=== PATIENT | male | born 1950 | race Caucasian/White ===

== ENCOUNTER 2022-07-02 14:44 | Emergency (ER) | payer MEDICARE, OTHER, SELFPAY ==
[2022-07-02 14:45] VITALS: BP 153/78; PULSE 70; RESP 14; TEMP 36.4; O2SAT 95; BMI 30.7
--- NOTE | 2022-07-02 14:56 | EX.ED.UPPERE ---
HPI History of Present Illness HPI Narrative: Left index finger laceration on a grinding wheel. Chief Complaint: Laceration Informant: patient Occured/Mechanism Mechanism/Context: Yes injury and Yes blunt trauma Onset/Context/Timing Onset: Today Context: Sudden Onset Timing: Continuous Quality of Pain: Dull Current Severity: Mild Maximum Severity: Mild Associated Symptoms Associated Symptoms: Negative for Parasthesia, Weakness or Loss of Funtion Narrative Narrative: 72-year-old male last tetanus shot was greater than 10 years ago. Was using a grinding wheel today and lacerated the dorsum of his left index finger. He is right-hand dominant. He is not on any blood thinners. Tetanus Immunization: >10 years Prior similar symptoms: No Recent Illness/Hospitalization: No PFSH PFSH Medical History (Updated 07/02/22 @ 15:11 by Jacinda Mirza) Hypercholesteremia Kidney stones Home Medications sertraline 50 mg tablet 50 mg PO DAILY 04/03/13 [History Last Taken Unknown] cephalexin 500 mg capsule 500 mg PO TID 5 days #15 caps 07/02/22 [Rx Last Taken Unknown] Allergy/AdvReac Type Severity Reaction Status Date / Time Iodinated Contrast Media Allergy Rash Verified 07/02/22 14:47 [Iodinated Contrast Media - IV Dye] Social History Smoking Status: Never smoker ROS ROS ED ROS Narrative Denies recent illness Review of Systems ROS Unobtainable: Denies due to encephalopathy Constitutional Constitutional ED: Denies chills or fever(s) Eyes Eyes: Denies blurry vision ENT ENT ED: Denies ear pain Cardiovascular Cardiovascular: Denies chest pain Respiratory/Chest Respiratory/Chest: Denies cough Gastrointestinal Gastrointestinal: Denies abdominal pain Genitourinary Genitourinary ED: Denies dysuria Musculoskeletal Musculoskeletal: Denies back pain Integumentary Denies abscess Neurologic Neurologic: Denies headache(s) Psychiatric Psychiatric: Denies anxiety Endocrine Endocrinology: Denies cold intolerance Hematologic/Lymphatic Hematologic/Lymphatic: Denies easy bleeding Allergic/Immunologic Allergic/Immunologic ED: Denies mouth swelling or tongue swelling EXAM Physical Exam Narrative Exam Narrative: Signs are met no acute distress. Vital signs stable afebrile. H EENT exam unremarkable. Lungs clear. Heart regular rhythm. Abdomen soft nontender. Moving all 4 extremities. Neurovascular intact. Normal range of motion. Specifically left hand, left index finger dorsum there is a 1-1/2 inch laceration is linear. He has full extension against resistance. Full flexion. Normal touch sensation. Normal cap refill. No foreign body. No obvious tendon involvement. Fingers neurovascular intact. Const Vital Signs: 07/02/22 14:45 Temperature 97.6 F L Temperature Source Temporal Pulse Rate 70 Respiratory Rate 14 Blood Pressure 153/78 H Blood Pressure Mean 103 Pulse Ox 95 Oxygen Delivery Method Room Air Positive well nourished and well developed; Negative for obese, cachectic, contractures or unkempt General Appearance ED: well developed and NAD; Negative for unkempt, cachectic, contractures, cyanotic or diaphoretic Nutritional Appearance: Negative for cachectic or obese HEENT Reports moist mucous membranes normocephalic and atraumatic; Negative for trauma or tenderness Eyes PERRL and EOMs intact bilaterally General Eye ED: Negative for other Neck full ROM and supple General: Negative for tenderness Lymph Lymphatic: Negative for other Chest Wall inspection of chest normal and palpation of chest normal Chest: Negative for other Resp normal respiratory effort and clear to auscultation bilaterally Effort and Inspection: Negative for pain with movement Auscultation: Negative for rales, rhonchi or wheezes Cardio regular rate, regular rhythm, S1 normal heart sound, S2 normal heart sound and no murmurs Rate: Negative for bradycardia or tachycardic Rhythm: Negative for abnormal rhythm GI non-tender, non-distended and no masses Inspection: Negative for abdominal distention Auscultation: normoactive bowel sounds Palpation: soft; Negative for tender or guarding Extremity normal to inspection Extremity Narrative: Exam left hand. Left index finger dorsum. 1 to 2 inch linear laceration. Full flexion extension. Full extension against resistance. Normal touch sensation. Normal cap refill. No infection. No foreign body noted. General Extremety ED: Negative for edema General Extremity: Negative for edema Neuro oriented x3, CN's II-XII intact bilaterally, moves all extremities and no focal motor deficits Sensorium / Orientation: alert, oriented to person, oriented to place and oriented to time; Negative for orientation impaired, lethargic or stuporous Motor Exam: strength 5/5 throughout Psych mental status grossly normal Appearance: Negative for unkempt Attitude: No agitated Mood & Affect: Negative for depressed, anxious or tearful Skin General Skin Exam: Negative for petechiae Lesions: no lesions Rashes: no rashes Trauma: no lacerations or abrasions; Negative for abrasion or laceration MDM MDM MDM Narrative Medical decision making narrative: Flex today finger laceration. Tetanus updated. Will be cleaned. Local anesthetized and repaired. Suture removal 10 days. Watch for any signs of infection. Return if any problems. History & Record Review Discussion w/independent historian: Patient Procedures Lacerations Dorsal left index finger laceration repair:: Length: 2 in Depth: Sub Q Shape: Linear Prep: [place]is Laceration repair: Irrigated, Lidocaine, Local and Skin sutures Number of Sutures/Uzma: 4 Suture Information: Ethilon, Simple and 4-0 Comment: Left index finger laceration. Dorsum over the PIP. Involve the skin and subcu tissue. Minimal bleeding. Full flexion extension. Normal touch sensation and cap refill. Wound involves the skin and subcu tissue. Does go deeper on the distal and might even involve the tendon sheath. I do not see any tendon involvement itself nor any joint or bone involvement. Irrigated thoroughly. Closed using 4 simple, interrupted sutures. Patient tolerated wound closure well. Proper hemostasis and wound closure was obtained. Patient was instructed on wound care and suture removal. He will be placed on Keflex for 5 days to try to prevent infection since it is deeper. Discharge Plan Triage Chief Complaint: Laceration ED Provider: Rafael Pierre Dx/Rx/DC Orders Clinical Impression: Finger laceration Instructions: ED Laceration, Hand: All Closures Prescriptions: New cephalexin 500 mg capsule 500 mg PO TID 5 Days Qty: 15 0RF No Action sertraline 50 MG tablet 50 mg PO DAILY Activity Restrictions/Additional Instructions: Clean with soap and water. Keep dry. Apply antibiotic ointment daily. Watch for any signs of infection such as redness, fever, and because swelling or streaks of seen return. Stitches out in 10 days. Antibiotic 1 pill 3 times a day for 5 days. Disposition Disposition: Home, Self Care
[2022-07-02] MEDS: Lidocaine 1% (20 ml mdv) 20 ML Vial 10 ML INFILT (15:02)
[2022-07-02] MEDS: Diphth,Pertuss(Acell),Tet Vac 0.5 ML Vial IM (15:03)
== END 2022-07-02 15:44 | disposition home or self-care (01) ==
LOC: ED 15:37
PROVIDERS: Emergency Provider Emergency Medicine; PCP Physician Assistant; Visit Provider Emergency Medicine
DX: S61.219A Laceration without foreign body of unspecified finger without damage to nail, initial encounter (principal); E78.00 Pure hypercholesterolemia, unspecified; W31.1XXA Contact with metalworking machines, initial encounter
CPT/HCPCS: 12001; 99283